=== PATIENT | female | born 1955 | race Two or more races ===

== ENCOUNTER 2018-04-02 08:14 | Emergency (ER) | payer BC ==
--- NOTE | 2018-04-02 08:37 | PDOC ---
History of Present Illness - General Chief Complaint: Rash Stated Complaint: RASH Time Seen by Provider: 04/02/18 08:35 Past History - Past Medical History Allergies/Adverse Reactions: Allergies Allergy/AdvReac Type Severity Reaction Status Date / Time No Known Allergies Allergy Verified 04/02/18 08:34 Home Medications: Ambulatory Orders Cyclobenzaprine HCl [Flexeril -] 10 mg PO TID #21 tablet 02/07/18 Cyclobenzaprine HCl [Flexeril -] 10 mg PO TID #21 tablet 02/07/18 Naproxen [Naprosyn -] 500 mg PO BID #14 tablet 02/07/18 Naproxen [Naprosyn] 500 mg PO BID #14 tablet 02/07/18 COPD: No Diabetes: Yes HTN: Yes Hypercholesterolemia: Yes - Suicide/Smoking/Psychosocial Hx Smoking History: Never smoked *DC/Admit/Observation/Transfer - Referrals Referrals: Shiraz Virk MD [Primary Care Provider] - - Patient Instructions - Post Discharge Activity
--- NOTE | 2018-04-02 08:49 | PDOC ---
History of Present Illness - General History Source: Patient Exam Limitations: No Limitations - History of Present Illness Initial Comments: 63 yo F w a hx of morbid obesity, T2DM, HTN, HLD is here after 4 days of a diffuse pruritic rash over her chest, back, arms and legs. She has been itching non-stop. She went to her PCP - Dr. Virk 2 days ago who gave her benadryl and steroid cream but she states they have not helped and she cannot stand how much the rash itches. She reports that she has only been taking one 25 mg benadryl pill for her rash. The steroid cream seems to have helped the rash disappear from her back. She has an appointment with an embossing press operator and wage conciliator on Thursday but came in today because she could not stand how itchy the rash is. She denies any SOB or difficulty breathing. Denies a hx of anaphylaxis. Denies lip or tongue swelling. Denies any new medication or diet changes. Denies any recent travel or outdoor ramirez and/or plant exposure. Denies chest pain, back pain, nausea, vomiting, diarrhea, or constipation. Denies recent fevers, chills, or infections. PCP: Dr. Virk Allergies: NKA, NKDA Social HX: denies currently using cigarettes, alcohol, or illicit drugs. <Oumar William - Last Filed: 04/02/18 10:44> <Ailyn Grady - Last Filed: 04/02/18 11:20> - General Chief Complaint: Rash Stated Complaint: RASH Time Seen by Provider: 04/02/18 08:35 Past History - Past Medical History COPD: No Diabetes: Yes HTN: Yes Hypercholesterolemia: Yes - Suicide/Smoking/Psychosocial Hx Smoking History: Never smoked <Oumar William - Last Filed: 04/02/18 10:44> <Ailyn Grady - Last Filed: 04/02/18 11:20> - Past Medical History Allergies/Adverse Reactions: Allergies Allergy/AdvReac Type Severity Reaction Status Date / Time No Known Allergies Allergy Verified 04/02/18 08:50 Home Medications: Ambulatory Orders Hydroxyzine HCl 25 mg PO PRN 5 Days #20 tablet 04/02/18 Review of Systems - Review of Systems Constitutional: Yes: See HPI. No: Chills, Fever HEENTM: Yes: See HPI. No: Blurred Vision, Nose Congestion, Throat Pain, Throat Swelling, Difficulty Swallowing, Mouth Swelling Respiratory: Yes: See HPI. No: Cough, Shortness of Breath, Wheezing, Productive cough Cardiac (ROS): No: Chest Pain, Edema, Lightheadedness ABD/GI: No: Abdominal Distended, Constipated, Diarrhea, Difficulty Swallowing, Nausea, Vomiting : No: Burning, Dysuria, Frequency, Urgency Musculoskeletal: No: Back Pain, Joint Stiffness Integumentary: Yes: See HPI, Change in Color, Dryness, Erythema, Flushing, Lesions, Pruritus, Rash Neurological: No: Headache, Numbness, Tingling, Unsteady Gait, Dizziness Psychiatric: No: Anxiety, Depression Endocrine: No: Excessive Sweating, Intolerance to Cold, Intolerance to Heat Hematologic/Lymphatic: No: Anemia, Easy Bleeding, Easy Bruising <Oumar William - Last Filed: 04/02/18 10:44> *Physical Exam - Physical Exam General Appearance: Yes: Nourished, Appropriately Dressed. No: Apparent Distress HEENT: positive: EOMI, RHIANNON, Normal ENT Inspection, Normal Voice, Pharynx Normal. negative: Scleral Icterus (R), Scleral Icterus (L), Muffled/Hoarse voice, Pharyngeal Erythema, Tonsillar Exudate, Tonsillar Erythema, Nasal Congestion, Rhinorrhea, Trinh, Excessive drooling Neck: positive: Trachea midline, Normal Thyroid, Supple. negative: Decreased range of motion, Stridor, Lymphadenopathy (R), Lymphadenopathy (L) Respiratory/Chest: positive: Lungs Clear, Normal Breath Sounds. negative: Chest Tender, Respiratory Distress, Accessory Muscle Use, Labored Respiration, Rapid RR, Decreased Breath Sounds, Crackles, Rales, Rhonchi, Stridor, Wheezing Cardiovascular: positive: Regular Rhythm, Regular Rate, S1, S2. negative: Edema , JVD, Murmur Vascular Pulses: Dorsalis-Pedis (R): 2+, Doralis-Pedis (L): 2+ Gastrointestinal/Abdominal: positive: Normal Bowel Sounds, Soft. negative: Guarding, Rebound Lymphatic: negative: Adenopathy Musculoskeletal: positive: Normal Inspection. negative: CVA Tenderness Extremity: positive: Normal Capillary Refill, Normal Range of Motion, Erythema. negative: Delayed Capillary Refill Integumentary: positive: Normal Color, Dry, Warm, Erythema, Rash (There is a diffuse macular rash with some excoriations over the chest, arms, and back. The rash blanches. No urticaria, no papules. No hives. ). negative: Jaundice, Hives , Bruising <Oumar William - Last Filed: 04/02/18 10:44> - Vital Signs Last Vital Signs Temp Pulse Resp BP Pulse Ox 97.8 F 72 18 147/51 L 91 L 04/02/18 08:20 04/02/18 08:20 04/02/18 10:10 04/02/18 10:10 04/02/18 10:10 <Ailyn Grady - Last Filed: 04/02/18 11:20> ED Treatment Course - Medications Given in the ED: ED Medications Discontinued Medications Generic Name Dose Route Start Last Admin Trade Name Freq PRN Reason Stop Dose Admin Diphenhydramine HCl 50 mg 04/02/18 08:58 04/02/18 09:20 Benadryl - PO 04/02/18 08:59 50 mg ONCE ONE Administration <Ailyn Grady - Last Filed: 04/02/18 11:20> Medical Decision Making - Medical Decision Making 63 yo F w a hx of morbid obesity, T2DM, HTN, HLD is here after 4 days of a diffuse pruritic rash over her chest, back, arms and legs. She has been itching non-stop. She went to her PCP - Dr. Virk 2 days ago who gave her benadryl and steroid cream but she states they have not helped and she cannot stand how much the rash itches. She has an appointment with an embossing press operator and wage conciliator on Thursday bt came in of intractable pruritis. She has been taking benadryl but underdosing. She has only been taking 25 mg every 6 hours. Vital signs are remarkable for hypoxia - SpO2 of 91% on RA. Patient states she snores alot while she sleeps. The hypoxia is most likely chronic in nature and probably a result of OHS. Plan: Benadryl, CXR, re-assess. -will educate on proper benadryl usage. CXR unremarkable. Will DC w/ prescription for hydroxyzine and PCP fu. <Oumar William - Last Filed: 04/02/18 10:44> *DC/Admit/Observation/Transfer - Discharge Dispostion Decision to Admit order: No <Oumar William - Last Filed: 04/02/18 10:44> <Ailyn Grady - Last Filed: 04/02/18 11:20> Diagnosis at time of Disposition: Rash, Itching - Discharge Dispostion Disposition: HOME Condition at time of disposition: Stable - Prescriptions Prescriptions: Hydroxyzine HCl 25 mg PO PRN 5 Days #20 tablet - Referrals Referrals: Shiraz Virk MD [Primary Care Provider] - - Patient Instructions Printed Discharge Instructions: DI for Itching, Hidroxicina Additional Instructions: You came into the ER because you had very bad itching. We believe you do not have an infection and the best way to figure out what is causing your itchiness is to have your appointment on Thursday with your embossing press operator. The chest X-ray in the ER showed you don't have a lung infection. When you take benadryl please make sure to take 2 pills (50 mg total). We are sending a medication called hydroxyzine to your pharmacy, please make sure you go and pick it up. Please come back to the ER if you start experiencing shortness of breath, difficulty breathing, your tongue or lips start swelling, or have any other new or worsening concerns. Thank you for coming to the [facility] ER. We hope you feel better soon. Print Language: THAI - Post Discharge Activity
[2018-04-02 08:50] VITALS: PULSE 72; TEMP 97.8; BMI 50.3
[2018-04-02] MEDS ORDERED: diphenhydrAMINE HCL 25 MG CAPSULE (FP) PO ONE ×2 (08:58→09:10)
--- NOTE | 2018-04-02 10:03 | PDOC ---
Attending Attestation - Resident Resident Name: Oumar William - ED Attending Attestation I have performed the following: I have examined & evaluated the patient, The case was reviewed & discussed with the resident, I agree w/resident's findings & plan - HPI HPI: 04/02/18 09:57 Santos 63 yo F w a hx of morbid obesity, T2DM, HTN, HLD presenting to the ED with diffuse pruritic rash over her chest, back, arms and legs x 4 days, saw Dr. Virk this week with sx, rxd topical beta methasone and benadryl, with some relief. No fever or chills. Denies precipitating factors such as new clothing or detergents, environmental triggers. No cough or congestion, n/v/d, cp or sob, dizziness. - Physicial Exam PE: 04/02/18 10:03 NAD, well appearing, morbidly obese, MMM, speaking full sentences, airway intact , no stridor, nl conjunctiva, anicteric; neck supple. lungs clear, no respiratory distress. RRR, abdomen soft nontender. GRANT x4, no focal neuro deficits. No peripheral edema. normal color for ethnicity, WWP. +scant areas of excoriations over anterior chest and breast. - Medical Decision Making 04/02/18 09:57 Tom 63 yo F w a hx of morbid obesity, T2DM, HTN, HLD presenting to the ED with diffuse pruritic rash over her chest, back, arms and legs x 4 days. no systemic sx. rash improving in the ED with properly dosed benadryl 50mg x1 PO. scant areas of excoriation over anterior chest/breast, but no rash on back, legs or arms any longer. rx hydroxyzine PO as needed for itch and rash, c/w topical steroids. not candidate for systemic steroids as risk of hyperglycemia with DM2 history. Vitals noted for initial SpO2 77%, but no cp/respiratory distress and lungs clear, remains well appearing. rechecked, SpO2 91% on RA, which can be explained by possible pickwickian and KAITLYN, awaiting sleep study. when clarified with patient, she is awaiting sleep study with PMD, when she was in office with Dr. Virk had borderline sats. CXR_enlarged heart, but no edema or effusion or infiltrate has appt with certified medical transcriptionist next week and told to call PMD for reeval and followup on pulm studies. plan: Pt to be discharged in stable condition. Patient and family made aware of impression and plan, return precautions discussed (including but not limited to worsening pain or symptoms), fevers, or signs of infection, chest pain, respiratory distress, inability to tolerate oral intake, dehydration, syncope, or neurologic changes). Follow up with PMD and/or specialist as recommended, follow up information provided, take medications as instructed for duration of time. continue with supportive care, avoid triggers and precipitants. All questions answered to patient's satisfaction and expressed understanding and comfort with this. 04/02/18 11:21 04/02/18 11:25
[2018-04-02 10:38] VITALS: BP 147/51
== END 2018-04-02 10:36 | disposition home or self-care (01) ==
LOC: JERFT 08:14
DX: L29.8 Other pruritus (principal); R21 Rash and other nonspecific skin eruption; E11.9 Type 2 diabetes mellitus without complications; Z79.84 Long term (current) use of oral hypoglycemic drugs; I10 Essential (primary) hypertension; E78.00 Pure hypercholesterolemia, unspecified; E66.01 Morbid (severe) obesity due to excess calories; Z68.43 Body mass index [BMI] 50.0-59.9, adult
CPT/HCPCS: 71046-TC-FY; 99281-25

== ENCOUNTER 2019-05-28 09:51 | Emergency (ER) | payer BC ==
[2019-05-28 10:03] VITALS: BP 128/74; PULSE 78; TEMP 98.5; BMI 47.5
[2019-05-28] MEDS ORDERED: METHOCARBAMOL 500 MG TABLET PO ONE (10:23)
[2019-05-28] MEDS ORDERED: NAPROXEN 500 MG TABLET (FP) PO ONE (10:23)
--- NOTE | 2019-05-28 10:35 | PDOC ---
History of Present Illness - General Chief Complaint: Pain, Acute Stated Complaint: NECK PAIN Time Seen by Provider: 05/28/19 10:19 History Source: Patient Exam Limitations: Clinical Condition - History of Present Illness Initial Comments: 05/28/19 10:30 Patient with no significant past medical history presented with complaint of 2 weeks history of neck pain which moved from left to right side of neck and worsened with movement. Patient reports intermittent neck stiffness. Patient reports taking Tylenol for symptoms without improvement. Denies numbness or tingling sensation, dizziness, headaches, blurry vision or change in vision. Denies fever or chills. Denies any other symptoms Occurred: reports: other (2 weeks) Pain Location: reports: neck (posterior and sides of neck) Method of Injury: Yes: unknown Modifying Factors: worse with: pain medication (Tylenol) Loss of Consciousness: no loss of consciousness Associated Symptoms (Fall): neck pain Past History - Past Medical History Allergies/Adverse Reactions: Allergies Allergy/AdvReac Type Severity Reaction Status Date / Time No Known Allergies Allergy Verified 05/28/19 09:57 Home Medications: Ambulatory Orders Aspirin [Ecotrin] 325 mg PO DAILY 05/28/19 Atorvastatin Calcium [Lipitor] 10 mg PO HS 05/28/19 Celecoxib [Celebrex -] 200 mg PO BID 05/28/19 Cyclobenzaprine HCl [Flexeril 10 mg] 10 mg PO TID PRN 05/28/19 Empagliflozin [Jardiance] 25 mg PO DAILY 05/28/19 Losartan/Hydrochlorothiazide [Losartan-Hctz 100-12.5 mg Tab] 1 each PO DAILY Methocarbamol [Robaxin -] 500 mg PO BID PRN #14 tablet 05/28/19 Naproxen 500 mg PO BID PRN #20 tablet 05/28/19 COPD: No Diabetes: Yes HTN: Yes Hypercholesterolemia: Yes Other medical history: arthritis - Psycho Social/Smoking Cessation Hx Smoking History: Never smoked Have you smoked in the past 12 months: No Hx Alcohol Use: No Drug/Substance Use Hx: No Substance Use Type: None Trauma Specific PMHX - Complaint Specific PMHX Arthritis: Yes Back Injury: No Neck Injury: No Review of Systems - Review of Systems Able to Perform ROS?: Yes Is the patient limited [place] proficient: No Constitutional: No: Chills, Fever, Malaise HEENTM: No: Symptoms Reported, See HPI, Eye Pain, Blurred Vision, Tearing, Recent change in vision, Double Vision, Cataracts, Ear Pain, Ocular Prothesis, Ear Discharge, Nose Pain, Nose Congestion, Tinnitus, Nose Bleeding, Hearing Loss , Throat Pain, Throat Swelling, Mouth Pain, Dental Problems, Difficulty Swallowing, Mouth Swelling, Other Respiratory: No: Symptoms reported, See HPI, Cough, Orthopnea, Shortness of Breath, SOB with Exertion, SOB at Rest, Stridor, Wheezing, Productive cough, Hemoptysis, Other Cardiac (ROS): No: Symptoms Reported, See HPI, Chest Pain, Edema, Irregular Heart Rate, Lightheadedness, Palpitations, Syncope, Chest Tightness, Other ABD/GI: No: Symptoms Reported, Nausea, Vomiting Musculoskeletal: Yes: Symptoms Reported, See HPI, Neck Pain (posterior neck pain ) Integumentary: No: Symptoms Reported Neurological: No: Symptoms reported, Headache, Numbness, Paresthesia, Dizziness All Other Systems: Reviewed and Negative *Physical Exam - Vital Signs Last Vital Signs Temp Pulse Resp BP Pulse Ox 98.5 F 78 18 128/74 95 05/28/19 10:01 05/28/19 10:01 05/28/19 10:01 05/28/19 10:01 05/28/19 10:01 - Physical Exam General Appearance: Yes: Nourished, Appropriately Dressed. No: Apparent Distress ED Treatment Course - RADIOLOGY Radiology Studies Ordered: Category Date Time Status SPINE-CERVICAL [RAD] Stat Radiology 05/28/19 10:23 Ordered Medical Decision Making - Medical Decision Making 05/28/19 10:31 Patient with no significant past medical history presented with complaint of 2 weeks history of neck pain which moved from left to right side of neck and worsened with movement. Patient reports intermittent neck stiffness. Patient reports taking Tylenol for symptoms without improvement. Denies numbness or tingling sensation, dizziness, headaches, blurry vision or change in vision. Denies fever or chills. Denies any other symptoms Exam significant for mild tenderness to bilateral paravertebral prominence of muscle of cervical spinal C2-C6. Few range of motion of cervical spine otherwise normal exam. Patient symptoms likely neck strain with intermittent spasm. Naproxen 5 mg p.o. and Robaxin 500 mg p.o. ordered for pain and spasm. X-ray of cervical spine ordered to rule out acute pathology 05/28/19 10:44 X-ray of cervical spine shows no acute pathology. Patient stable for discharge on naproxen as needed for pain and Robaxin p.o. for spasm with orthopedic spine follow-up and advised to do hot compress Discharge - Discharge Information Problems reviewed: Yes Clinical Impression/Diagnosis: Muscle strain, Neck muscle spasm Condition: Stable Disposition: HOME - Admission No - Additional Discharge Information Prescriptions: Methocarbamol [Robaxin -] 500 mg PO BID PRN #14 tablet PRN Reason: neck pain Naproxen 500 mg PO BID PRN #20 tablet PRN Reason: neck pain - Follow up/Referral Referrals: David Diop MD, [facility] [Staff Physician] - - Patient Discharge Instructions Patient Printed Discharge Instructions: DI for Neck Sprain Additional Instructions: X-ray of your neck was normal and symptoms likely caused by neck strain and spasm. Take prescribed medication as needed for pain. Apply hot compress to neck 2-3 times a day as needed for spasm. Follow-up referred orthopedic chargemaster specialist if no improvement in 4 days - Post Discharge Activity
[2019-05-28] MEDS ORDERED: NAPROXEN 500 MG TABLET (FP) ONE (10:39)
[2019-05-28] MEDS ORDERED: METHOCARBAMOL 500 MG TABLET ONE (10:43)
== END 2019-05-28 10:45 | disposition home or self-care (01) ==
LOC: JERFT 09:51
DX: M62.838 Other muscle spasm (principal); I10 Essential (primary) hypertension; E78.00 Pure hypercholesterolemia, unspecified; E11.9 Type 2 diabetes mellitus without complications; M12.9 Arthropathy, unspecified
CPT/HCPCS: 72050-TC-FY; 99281-25